=== PATIENT | female | born 1950 | race Caucasian/White ===

== ENCOUNTER → 2017-05-29 | Outpatient (CLI) | payer OTHER ==
[~2017-05-29] MED LIST: ACET-1311 PO; ASPI81TA25 PO; DIPH-437 PO; SIMV20TA2 PO
[2017-05-29 12:24] LABS: BASO % 0.5 %; BASO ABS # 0.03 K/uL (0-0.2); EOS % 6.4 %; EOS ABS # 0.39 K/uL (0-0.5); HEMATOCRIT 40.8 % (37-47); HEMOGLOBIN 13.7 g/dL (12.0-16.0); IG# 0.01 K/uL (0.00-0.02); LYMPH % 22.8 %; LYMPH ABS # 1.38 K/uL (1.2-3.4); MEAN CELL VOLUME 89.9 fL (80-100); MEAN CORPUSCULAR HEMOGLOBIN 30.2 pg (25-34); MEAN CORPUSCULAR HGB CONC 33.6 g/dl (32-36); MONO % 6.3 %; MONO ABS # 0.38 K/uL (0.11-0.59); NEUT % 63.8 %; NEUT ABS # 3.87 K/uL (1.4-6.5); PLATELET COUNT 263 K/uL (130-400); RED CELL DISTRIBUTION WIDTH CV 13.2 % (11.5-14.5); WHITE BLOOD COUNT 6.06 K/uL (4.8-10.8)
[2017-05-29 12:37] LABS: HEMOGLOBIN A1C 5.2 % (4.5-5.6)
[2017-05-29 12:42] LABS: ALBUMIN 3.7 gm/dl (3.4-5.0); ALT/SGPT 22 U/L (12-78); AST/SGOT 14 U/L (15-37); BLOOD UREA NITROGEN 17 mg/dl (7-18); CARBON DIOXIDE 27 mmol/L (21-32); CHOLESTEROL 244 mg/dl (0-200); GLUCOSE 90 mg/dl (70-99); POTASSIUM 4.3 mmol/L (3.5-5.1); SODIUM 139 mmol/L (136-145)
[2017-05-29 12:52] LABS: ALKALINE PHOSPHATASE 68 U/L (45-117); LDL CHOLESTEROL CALCULATED 164 mg/dl; TOTAL PROTEIN 7.9 gm/dl (6.4-8.2)
== END | disposition home or self-care (01) ==
LOC: C.LABBFT 08:16
PROVIDERS: ATTEND Internal Medicine
DX: Z00.00 Encounter for general adult medical examination without abnormal findings (principal); I63.239 Cerebral infarction due to unspecified occlusion or stenosis of unspecified carotid artery; E78.00 Pure hypercholesterolemia, unspecified; R73.01 Impaired fasting glucose

== ENCOUNTER → 2017-12-14 | Outpatient (CLI) | payer OTHER ==
--- NOTE | 2017-12-14 11:38 | DIAGNOSTIC IMAGING REPORT ---
CT LUNG SCREENING CHEST, LOW DOSE WITH COMPUTER-AIDED DETECTION (CAD) CLINICAL HISTORY: 67 years-old Female presenting with FORMER SMOKER. CT DOSE (mGy.cm): The estimated cumulative dose is 73.66 mGycm. TECHNIQUE: Multidetector CT imaging of the chest was performed without the use of intravenous contrast. IV contrast: None. A dose lowering technique was used consistent with the principles of ALARA (as low as reasonably achievable). Additional postprocessing was performed on a separate [employer] workstation by the radiologist for computer-aided detection and 3-D volumetric segmentation of pulmonary nodules. COMPARISON: None. FINDINGS: Move Coordinator topogram: Unremarkable. On soft tissue windows, normal thoracic inlet. No axillary, supraclavicular, or mediastinal lymphadenopathy. Evaluation of the shyay limited without intravenous contrast. Atherosclerosis of the aorta. Normal heart size. Coronary artery and aortic valve calcification. No pericardial or pleural effusion. Upper abdomen normal. On lung windows, no focal infiltrate or nodule. Airways patent. No pneumothorax. On bone windows, normal osseous structures. CAD FINDINGS: Overall Lung RADS Category: 1 Lung RADS Management Recommendation: Continue annual lung cancer screening. Lung RADS Follow Up Date: 2018-12-14 Lung RADS Nodule ID: IMPRESSION: 1. No pulmonary nodule. Continued interval lung cancer screening. Electronically signed by: Pablo Davis M.D. 12/14/2017 11:37 AM Dictated Date/Time: 12/14/2017 9:47 AM
== END | disposition home or self-care (01) ==
LOC: C.CTS 09:27
PROVIDERS: ATTEND Internal Medicine
DX: Z87.891 Personal history of nicotine dependence (principal)

== ENCOUNTER 2020-07-23 05:09 | Observation (INO) ==
--- NOTE | 2020-07-07 15:45 | PAT Medication Instructions ---
Medication Instructions Date of Service July 07, 2020 Home Medications Medication Instructions Recorded Ray Fagan #1 ea 06/29/20 turmeric 400 mg capsule 400 mg PO QAM Dotterra Vitamin 2 cap PO QAM Triease 1 cap PO QAM STOP taking 2 weeks before surgery turmeric 400 mg capsule 400 mg PO QAM Dotterra Vitamin 2 cap PO QAM Triease 1 cap PO QAM OTHERWISE NOTHING TO EAT OR DRINK AFTER MIDNIGHT: Other Notes If you have any questions please call us at [phone] or [phone] or [phone] or [phone]
--- NOTE | 2020-07-09 10:37 | Anesthesiology Consultation ---
Date of Service July 09, 2020 Assessment & Plan (1) Encounter for pre-operative examination: Chart Review Chart Review: Acceptable Risk for Surgery (pending preop Covid testing ) and Patient seen in Pre Admission Testing Per PAT appt on 07/09/20, patient denies any recent travel. No known Covid infection in the past 90 days. No known Covid positive contacts or Covid related symptoms. Preop Covid testing scheduled 07/17/20= will await results. Educated on importance of self quarantining, social distancing and wearing mask in public both for the patient and household contacts. Has had both Covid vaccines Seen by PCP 05/19/20= seen for Medicare annual wellness exam. Also referred to Dr. Jordan (ortho) for ongoing chronic knee pain. Seen by cardiology 02/17/2020 = pt seen re: abnormal ECHO. Aware of moderate to severe coronary artery calcifications on CT scan. ECHO done 12/2019 that showed severe asymmetric septal hypertrophy. Carotid u/s shows left carotid occlusion. "The patient is stable from cardiovascular standpoint. The patient was reassured that her asymmetric septal hypertrophy does not represent hypertrophic cardiomyopathy and is of no clinical concern. We will reassess her left ventricle hypertrophy in approximately 1 year." Continue current meds. Plan for repeat ECHO and carotid u/s in one year. F/u in one year. Teaching & Discussion Pre-Anesthesia Teaching/Discussion Notes: Instructed NPO after midnight before surgery,except medications with 15 cc of water. Medication instructions provided according to the PAT guidelines. History Surgery Operation Date: 07/23/20 11:10 Proposed Procedures p Left Total Knee Arthroplasty - Delon Jordan MD Height/Weight Height: 5 ft 4 in Weight: 102 kg Allergies Allergy/AdvReac Type Severity Reaction Status Date / Time shrimp Allergy Severe LIPS Verified 07/02/20 12:34 TINGLING nickel Allergy Intermediate Blister Verified 07/02/20 12:33 Nmiopxo-Xtp-Wko Reductase Allergy Intermediate SEVERE Verified 07/02/20 12:34 Inhibitor MUSCLE PAIN/COULD NOT WALK Medications Home Medications Medication Instructions Recorded Confirmed Last Taken turmeric 400 mg capsule 400 mg PO QAM cap 05/15/19 07/02/20 01/20/20 Wheeled Walker #1 ea 06/29/20 06/29/20 Unknown Dotterra Vitamin 2 cap PO QAM 07/02/20 07/02/20 Unknown Triease 1 cap PO QAM 07/02/20 07/02/20 Unknown Bone Nutrient See Rx Instructions .ROUTE .COMPLEX 07/09/20 07/09/20 Unknown Copaiba See Rx Instructions .ROUTE .COMPLEX 07/09/20 07/09/20 Unknown Deep Blue Supplement See Rx Instructions .ROUTE .COMPLEX 07/09/20 07/09/20 Unknown Past Medical History Medical History (Updated 07/09/20 @ 12:34 by Peace Hagen PA-C) Asymmetric septal hypertrophy Follows with cardiology - no signs of HCM History of hypothyroidism Pt has never been on thyroid medications in the past States essential oils have helped regulate thyroid TSH WNL 05/2020 History of restless legs syndrome No current issues Hyperlipidemia Patient not agreeable to statin therapy Diet controlled Occlusion and stenosis of carotid artery with cerebral infarction (2012) LEFT SIDE "100% BLOCKED" SINCE AT LEAST 2012 No longer follows with vascular- follows with Dr. Crouch and PCP Seasonal allergies Seborrheic keratosis Stroke 2012 (MILD RESIDUAL WEAKNESS ON RT SIDE) Exercise / Class Metabolic Activity II 4-5 Yardwork/Stairs/Walk up hill (one flight of stairs - no chest pain or SOB ) Past Family History Family History Father Colon cancer Lung cancer Colorectal cancer Mother CHF (congestive heart failure) Lung cancer Sister Alcohol abuse Bladder cancer Lymphoma Hypertension Grandfather (Paternal) Myocardial infarction Grandmother (Maternal) Uterine cancer Other No family history of adverse response to anesthesia Denies family history of Ovarian cancer Prostate cancer Breast cancer Past Surgical History Surgical History History of ankle surgery LEFT (HARDWARE INTACT) History of colonoscopy History of tonsillectomy and adenoidectomy History of tooth extraction History of tubal ligation [place] teeth removed Past Anesthesia History No Hx of Anesthesia Complications and No Family Hx of Anesthesia Complications History of PONV No Hx of Motion Sickness and History of PONV (one episode with wisdom teeth extraction ) Social History Smoking Status: Former smoker Smoking cigarettes per day: 20 Smoking End Date: 9 YEARS AGO Hx Alcohol Use: Yes Alcohol type: wine alcohol intake frequency: holidays/special occasions only Hx Substance Use: No substance use type: does not use Review of Systems Chronic cough- mild- secondary to allergies - stable Very occ reflux- relieved with OTC meds Patient denies chest pain, shortness of breath, dyspnea on exertion, wheezing, palpitations. No hx of seizures, AR, apnea/snoring. No hx of blood clots or blood transfusions Physical Exam Vital Signs VITALS BP 161/87 P 76 TEMP 98.0 SP02 95% RESP 16 Constitutional no acute distress ENMT Mouth: no TMJ clicking Thyromental Distance: < 3.5 Finger Breadths (3.0) Mallampati Class: I Full upper dentures Partial lower denture Neck + thick neck; neck extension not limited Respiratory normal respiratory effort; no respiratory distress Auscultation: lungs clear to auscultation bilaterally; no wheezes Cardiovascular Rate/Rhythm: regular rate and regular rhythm Heart Sounds: no murmur Vessels: no carotid bruit Musculoskeletal Spine: no pain with cervical ROM Extremities: extremities normal to inspection Psychiatric Orientation: alert Testing Laboratory Results 07/09/20 11:05 07/09/20 11:05 PT 9.6 Seconds (9.0-12.0) 07/09/20 11:05 INR 0.9 (0.9-1.1) 07/09/20 11:05 APTT 24.5 Seconds (21.0-31.0) 07/09/20 11:05 Blood Type B Positive 07/09/20 11:05 Antibody Screen NEGATIVE 07/09/20 11:05 05/13/20= TSH: 3.680 Electrocardiogram Date: 07/09/20 SR with 1st degree AVB at 67bpm. Otherwise normal EKG. Chest X-Ray Date: 07/09/20 Findings: + NAD Echocardiogram Date: 01/09/20 EF: 6065% LV Function: normal RWMA: + none Other Findings: + LVH (Moderate/concentric), + diastolic dysfunction (Grade 1) and + pertinent finding (Asymmetric severe hypertrophy of basal anterior septum) Valvular Disease: + no significant valvular disease Other Testing Lung CT scan 12/31/2019 = no acute intrathoracic abnormality. No suspicious pulmonary nodules. Moderate to extensive coronary calcifications. Hepatic st eatosis. . 9 mm peripherally calcified splenic artery aneurysm Carotid duplex 01/24/2019 = <50% stenosis in the right internal carotid artery. Occluded left internal carotid artery. Antegrade flow in both vertebral arteries.
[2020-07-09 11:27] LABS: Basophils # (auto) 0.02 K/uL (0-0.2); Basophils % (auto) 0.4 %; Eosinophils # (auto) 0.15 K/uL (0-0.5); Hematocrit (blood only) 38.9 % (37-47); Hemoglobin 13.2 g/dL (12.0-16.0); Immature Granulocytes # (auto) 0.02 K/uL (0.00-0.02); Immature Granulocytes % (auto) 0.4 %; Lymphocytes # (auto) 1.27 K/uL (1.2-3.4); Lymphocytes % (auto) 25.7 %; Mean Corpuscular Hemoglobin 31.1 pg (25-34); Mean Corpuscular Hgb Conc 33.9 g/dL (32-36); Mean Corpuscular Volume 91.7 fL (80-100); Mean Platelet Volume 8.3 fL (7.4-10.4); Monocytes % (auto) 6.1 %; Neutrophils # (auto) 3.18 K/uL (1.4-6.5); Neutrophils % (auto) 64.4 %; Platelet Count 235 K/uL (130-400); RDW Standard Deviation 43.2 fL (36.4-46.3); Red Blood Count 4.24 M/uL (4.2-5.4); White Blood Count 4.94 K/uL (4.8-10.8)
--- NOTE | 2020-07-09 11:36 | XRay Report ---
XR chest Pre-admission PA/Lat CLINICAL HISTORY: Preoperative chest COMPARISON STUDY: 12/22/2012 FINDINGS: The cardiac and mediastinal contours are normal. There is no evidence of focal pulmonary co nsolidation. There is no evidence of failure. No pleural effusions are visualized.[ IMPRESSION: No active disease in the chest. ACT 112: Negative or not required by law. Electronically signed by: Breezy Chiang M.D. 07/09/2020 11:34 AM
[2020-07-09 12:00] LABS: INR 0.9 (0.9-1.1); Partial Thromboplastin Ratio 0.9; Partial Thromboplastin Time 24.5 Seconds (21.0-31.0); Prothrombin Time 9.6 Seconds (9.0-12.0)
[2020-07-09 13:07] LABS: BUN Creatinine Ratio 17.2 (10-20); Creatinine Clr Calc Pharmacy 78.1 ml/min; Est GFR (African American) 88.5; Est GFR (Non-African American) 76.4; Potassium 4.3 mmol/L (3.5-5.1)
--- NOTE | 2020-07-09 16:51 | Electrocardiogram Report ---
Test Reason : Blood Pressure : / mmHG Vent. Rate : 067 BPM Atrial Rate : 067 BPM P-R Int : 218 ms QRS Dur : 080 ms QT Int : 390 ms P-R-T Axes : 058 047 057 degrees QTc Int : 412 ms Sinus rhythm with 1st degree A-V block Otherwise normal ECG When compared with ECG of 22-DEC-2012 08:46, Questionable change in QRS axis Confirmed by Krishna Carlson ([id number]) on 07/09/2020 4:51:14 PM Referred By: Delon Jordan Confirmed By:Krishna Carlson
--- NOTE | 2020-07-18 18:54 | History and Physical Report ---
DATE OF ADMISSION: 07/23/2020 CHIEF COMPLAINT: Bilateral knee pain and discomfort. HISTORY OF PRESENT ILLNESS: The patient is a 69-year-old female from [place], who presents basically for surgical treatment of her knees. She has about a 10-year history of bilateral knee pain and discomfort. It tends to wax and wane which one is more painful. It has gotten significantly worse over the past year to the point where she does not want to do things. She has been through extensive conservative treatment in the past. She does have a history of a stroke with some right-sided weakness about 8 years ago, but has been stable from this. She has pain and discomfort in both knees. She feels a little bit more instability in the right knee than the left. She now would like to consider surgery. PAST MEDICAL HISTORY: Significant for: 1. Cerebrovascular disease, status post stroke 8 years ago, some right-sided weakness. 2. Hypertension. 3. Hypothyroidism. 4. Elevated cholesterol. 5. Low back pain/sciatica. 6. Obesity. PAST SURGICAL HISTORY: Includes: 1. Tubal ligation. 2. Left ankle ORIF. 3. Tonsillectomy. ALLERGIES: STATIN DRUGS. CURRENT MEDICATIONS: Include: 1. Vitamins. 2. Turmeric. 3. Unspecified supplements. SOCIAL HISTORY: Significant for a 69-year-old female. Lives in [place]. She is . Rare alcohol intake. One child. FAMILY HISTORY: Significant for heart disease, lung cancer, or bladder cancer. REVIEW OF SYSTEMS: Significant for this stroke with some right-sided weakness. She does not take any medicine for it. No history of DVT or PE. No known bleeding problems. No history of chest pain or shortness of breath. PHYSICAL EXAMINATION: GENERAL: Shows a pleasant, middle-aged male, looks to be in reasonably good health. HEENT: Benign. NECK: Supple, no lymphadenopathy. LUNGS: Clear to auscultation. HEART: Has a regular rate and rhythm. ABDOMEN: Soft, nontender, nondistended. EXTREMITIES: Grossly neurovascularly intact except as follows: Examination of both knees reveals the patient ambulates independently. She has got valgus alignment to both knees, which is increased with weightbearing. Range of motion is symmetric with about 5 degrees short of full extension, 120 degrees of flexion. There is no instability. He does have some patellofemoral crepitance on both sides. X-RAYS: X-rays of both knees were reviewed. It shows advanced bilateral knee DJD. She has complete loss of lateral joint space on the 40-degree flexion films on both sides. She has got osteophytes mostly in the lateral compartment. ASSESSMENT: A 69-year-old female with advanced bilateral knee degenerative joint disease, gradually gotten worse over the past 10 years and more significantly over the past year. She has got multiple other medical comorbidities including history of stroke with some right-sided weakness, hypertension, hypothyroidism, elevated cholesterol, sciatica, and obesity with a body mass index of 40. She would like to proceed with surgery. PLAN: We initially looked down into her left knee, but she decided to switch to the right knee. Both knees are pretty equal except the right one has been a bit more unstable. We will proceed with right knee replacement. The risks and benefits of this procedure were explained to the patient including but not limited to DVT, PE, , infection, neurological injury, vascular injury, bleeding problem, pain, limited range of motion, stiffness, failure to relieve her symptoms, incomplete relief of symptoms, need for further surgery in the future, fracture, leg length inequality, nerve palsy, persistent pain, need for blood transfusion, etc. The patient understands and desires to proceed. Informed consent was obtained. SHE APPARENTLY DOES HAVE A BARNEY ALLERGY. We will use a Cruz and Nephew Zirconium Journey II knee arthroplasty. She is planning to be discharged to home with some home health. We will use aspirin for DVT prophylaxis.
[2020-07-23] MEDS ORDERED: LR 60ML/HR IV SCH (06:00)
[2020-07-23] MEDS ORDERED: FAMOTIDINE 20 MG TAB PO SCH (06:00)
[2020-07-23] MEDS ORDERED: TRANEXAMIC ACID 1,000 MG **IV Intra-op IV SCH (06:00)
[2020-07-23] MEDS ORDERED: Scopolamine 1 MG TDSY TD SCH (06:00)
[2020-07-23] MEDS ORDERED: ACETAMINOPHEN 500 MG TAB PO SCH (06:00)
[2020-07-23] MEDS ORDERED: ceFAZolin 2000MG 2,000 MG/15 ML SYR IV SCH (06:00)
[2020-07-23] MEDS ORDERED: LR 500ML BOLUS, THEN 15ML/HR IV SCH (06:00)
[2020-07-23] MEDS ORDERED: GABAPENTIN 300 MG CAP PO SCH (06:00)
[2020-07-23] MEDS ORDERED: BUPIVACAINE LIPOSOME/PF 266 MG, BUPIVACAINE/EPINEPHRINE 50 ML, SODIUM CHLORIDE 0.9% 30 ... INFIL SCH (06:00)
[2020-07-23] MEDS ORDERED: BUPIVACAINE 0.5 % 5 MG/1 ML PF 10ML VIAL ONE (06:28)
[2020-07-23] MEDS ORDERED: ROPIVACAINE 0.5% 5 MG/ML 30 ML VIAL ONE (06:29)
[2020-07-23] MEDS ORDERED: MIDAZOLAM HCL 1 MG/ML 2ML VIAL ONE (06:37)
[2020-07-23] MEDS ORDERED: KETAMINE 50 MG/5 ML SYRINGE ONE (06:37)
[2020-07-23] MEDS ORDERED: HYDROmorphone INJ 1 MG/ML SYRINGE IV PRN (06:39)
[2020-07-23] MEDS ORDERED: ATROPINE SULFATE 0.1 MG/ML 10ML SYR IV PRN (06:39)
[2020-07-23] MEDS ORDERED: ONDANSETRON INJ 2 MG/ML 2 ML VIAL IV PRN ×2 (06:39→10:16)
[2020-07-23] MEDS ORDERED: KETOROLAC 30 MG/ML VIAL IV PRN (06:39)
[2020-07-23] MEDS ORDERED: ePHEDrine sulfate 50 MG/ML AMP IV PRN (06:39)
[2020-07-23] MEDS ORDERED: LIDOCAINE HCL 2% 2 ML VIAL/AMP(20MG/ML) INFIL ONE (06:41)
[2020-07-23] MEDS ORDERED: ONDANSETRON INJ 2 MG/ML 2 ML VIAL ONE (06:41)
[2020-07-23] MEDS ORDERED: PROPOFOL IV EMULSION 10 MG/ML 20 ML VIAL IV ONE ×2 (06:41→08:43)
[2020-07-23] MEDS ORDERED: GLYCOPYRROLATE 0.2 MG/ML VIAL ONE (06:41)
--- NOTE | 2020-07-23 07:01 | History & Physical Bridge Note ---
Date of Service July 23, 2020 History & Physical Bridge Note I have examined the patient, reviewed the History & Physical and in the interval since the performance of the History & Physical I have noted the following changes of clinical significance: Patient with bilateral knee DJD. Wants left knee injection under anesthesia. Injection explained and added to informed consent.
[2020-07-23] MEDS ORDERED: SODIUM CHLORIDE 0.9% PF 50 ML VIAL ONE (07:03)
[2020-07-23] MEDS ORDERED: BUPIVACAINE LIPOSOME 1.3% 266 MG/20 ML VIAL ONE (07:03)
[2020-07-23] MEDS ORDERED: BACITRACIN INJ 50,000 UNIT VIAL ONE (07:03)
[2020-07-23] MEDS ORDERED: methylPREDNISolone acetate 80 MG/ML VIAL ONE (07:04)
[2020-07-23] MEDS ORDERED: BUPIVACAINE 0.25% 30 ML VIAL ONE (07:04)
[2020-07-23] MEDS ORDERED: EPINEPHrine INJ 1 MG/ML AMP ONE (07:04)
[2020-07-23] MEDS ORDERED: BUPIVACAINE 0.5 % 5 MG/1 ML MPF 30ML VIAL ONE (07:06)
[2020-07-23] MEDS ORDERED: BETAMETH SOD PHOS/ACETATE IA 6 MG/ML IA STA (07:09)
[2020-07-23] MEDS ORDERED: BUPIVACAINE 0.5 % 5 MG/1 ML MPF 30ML VIAL INFIL ONE (07:10)
[2020-07-23] MEDS ORDERED: PHENYLEPHRINE 100MCG/ML 5ML SYR ONE (07:43)
--- NOTE | 2020-07-23 09:30 | Operative Report ---
Post Operative Report Pre & Post Diagnosis Operation Date: 07/23/20 07:15 Pre-Op Diagnosis: Bilateral knee osteoarthritis Post-Op Diagnosis: Bilateral knee osteoarthritis I identified the patient and participated in the time-out.: Yes Procedure Operation Date: 07/23/20 07:15 Actual Procedures p Right Total Knee Arthroplasty, Left Knee Injection(Right) - Delon Jordan MD Surgeon Delon Jordan MD Dural Mechanic ARISTEO Shaffer Estimated Blood Loss 50 Findings Consistent with Post-Op Diagnosis Operative findings revealed advanced right knee DJD. She had extensive grade 4 [id number] disease the lateral and patellofemoral compartments. The medial compartment showed some mild to moderate degenerative changes. She had a valgus deformity to her knee. Osteophytes primarily laterally. Moderate-sized joint effusion. Fluids 1500 cc. Specimens Right knee sent for pathology. Drains None. Anesthesia Type Spinal MAC Complications none Disposition Accompanied Patient To Recovery: No Disposition: Recovery Room Indications Patient is a 69-year-old female is had a fairly long history of bilateral knee pain discomfort describes gotten worse over time. Both knees hurt pretty equally and vacillate from one knee to the other. The right knee is bothering more recently and also has more of a sense of instability. She does have a history of a stroke with some right-sided weakness. She failed all conservative measures and elected proceed with right total knee arthroplasty. She went to have her left knee injected under anesthesia. The patient has an apparent nickel allergy and therefore we used the Cruz & Nephew journey 2 zirconium total knee arthroplasty. Description of Procedure Operative implants consist of: 1. Cruz & Nephew journey 2 size 4 right posterior stabilized femoral component. 2. Cruz & Nephew journey 2 size 3 tibial tray. 3. 11 mm posterior stabilized polyethylene insert. 4. 29 x 9 all polypatella. Patient was taken to the operating room, identified, placed in the operating table supine position but all contact areas were properly padded. IV antibiotics tried by anesthesia team. A spinal anesthetic and abductor canal block had provided holding area. Alaniz catheter was placed in sterile fashion. Right thigh turn was then placed. Attention then drawn to the left knee. The stocking was taken down to her calf area and left knee was then prepped with alcohol. Injected left knee with 2 cc of Celestone and 8 cc of Marcaine. A 4 x 4 gauze was placed over this followed by a Bossman stocking and SCD device. The right leg was then prepped and draped in the usual sterile fashion. The [facility] leg was elevated exsanguinated with use of an Esmarch and turns placed at 3 mmHg. An anterior approach to the right knee was then performed to longitudinal incision centered over the patella. Sharp dissection was got through subcutaneous this down the extensor mechanism. Medial parapatellar arthrotomy incision was made. Some subperiosteal dissection was carried out medially. The fat pad was resected from each patella tendon. The lateral patellofemoral ligament was released. Patella was subluxated laterally knee was flexed. The osteophytes were taken off distal femur. The ACL and PCL were then released from distal femur and the tibia subluxated anteriorly. The external tibial alignment jig was one placed in the interface the tibia just 8 mm medially. Proximal tibial cut was made with about 3 to 4 mm removed from the medial side. The tibia was then sized to a size 3. Attention drawn the femur. The distal femur exam with a sharp drop with intramedullary canal was suction. A right 5 degree valgus cutting guide was placed. The distal femoral cutting block was pinned in place. Distal femoral cut was made to take an additional 4 mm bone off distal femur as the +2 cut related and cut to the base of the notch area. The knee was then brought out into full extension. I then released the IT band and some the posterior lateral capsule in order to equalize the extensio n gap. Great care was taken to protect Peroneal nerve at all times. The knee was then flexed. I then sized the femur to a size 4. The AP cutting block was pinned parallel to the epicondylar axis which was 6 degrees of external rotation. The anterior cord, anterior chamfer, posterior cut, posterior chamfer, anterior chamfer cuts were then made. The knee was flexed. The remnants of the medial lateral menisci were excised. The osteophytes were taken off the posterior aspect of the femur. The femoral component was then placed. The milling device for the trochlea was then placed in the trochlea was created with the milling device. I then placed the trochlear trial. We then we then placed the tibial tray in maximum external rotation. The drill and stem punch used to create defect in proximal to for the tibial tray. I then trialed the knee in 11 mm insert fit most appropriately. Attention drawn to the patella. Patella was cleaned of all soft tissues. Patella thickness measured 20 mm in thickness and cut down to 14. Was sized to a size 29 patella. Locals were drilled for the 29 patella. The lateral osteophyte was removed. Patella button was placed. Knee was taken through range of motion patella tracked nicely with no thumbs test. Attention drawn to placing permanent components. All trial components were removed. Bone plug was placed in the distal femur limit blood loss. A double batch [place]os G cement was mixed. A Cruz & Nephew journey 2 size 4 right posterior stabilized femoral component was then placed followed by a size 3 tibial tray, 1 mm posterior stabilized polyethylene insert, and a 29 x 9 all polypatella. All extraneous cement was removed. The knee was brought out into full extension total cement hardened. Final cement check was then performed. Pericapsular tissues were injected with a total of 100 cc of combination of 20 cc of Exparel, 30 cc normal saline, 50 cc of quarter percent Marcaine with epinephrine. Patient did receive 1 g tranexamic acid per the tourniquet was then let down for tourniquet time 71 minutes. Hemostasis assured use electrocautery. The extensor mechanism closed with combination 1 PDS suture #1 Vicryl suture in [id number] fashion. Extensor mechanism checked found to be intact. The subcutaneous tissue then closed with 2 Dexon suture in a buried interrupted fashion skin was closed skin edil. Leg was then cleaned dried a sterile dressing composed Xeroform, 4 x 4's, sterile cast padding, Dc bandage were applied. Patient transferred to the recovery room in stable condition. Patient tolerated procedure well and there were no complications. Vicente Shaffer, my physician reference library assistant, was present for the entire procedure. His assistance was essential and required for appropriate patient positioning, prepping and draping, surgical exposure, performing the technical details of the operation, placement the implants, closure of the wound, and placement of the sterile bandage. I attest to the content of the Intraoperative Record and any orders documented therein. Any exceptions are noted below.
--- NOTE | 2020-07-23 09:54 | XRay Report ---
RIGHT KNEE 2 VIEWS History: Right total knee arthroplasty. Degenerative arthritis. Postop. FINDINGS: The patient is status post a right total knee arthroplasty. The hardware is intact. No frac ture or dislocation. Skin edil are in place. IMPRESSION: Right total knee arthroplasty. No evidence for hardware complication. ACT 112: Negative or not required by law. Electronically signed by: Sebas Cr M.D. 07/23/2020 9:53 AM
--- NOTE | 2020-07-23 09:59 | Anesthesiology Progress Note ---
Date of Service July 23, 2020 Anesthesia Post Procedure Vital Signs Vital Signs: Temp Pulse Pulse Resp BP BP Pulse Ox 07/23/20 09:50 36.3 C L 64 16 143/70 H 95 07/23/20 09:40 67 10 L 148/88 H 97 07/23/20 09:30 73 17 114/87 99 07/23/20 09:22 36.7 C 76 20 115/68 97 07/23/20 05:54 36.7 C 92 H 18 160/85 H 97 Transfer of Care Handoff Completed per policy Notes Mental Status: alert / awake / arousable Patient Amnestic to Procedure: Yes Nausea / Vomiting: adequately controlled Pain: adequately controlled Airway Patency, RR, SpO2: stable & adequate BP & HR: stable & adequate Hydration State: stable & adequate Anesthetic Complications: no major complications apparent
[2020-07-23] MEDS ORDERED: HYDROmorphone INJ 0.5 MG/0.5 ML SYR IV PRN (10:16)
[2020-07-23] MEDS ORDERED: NALOXONE HCL 0.4 MG/1 ML VIAL/CARP IV PRN (10:16)
[2020-07-23] MEDS ORDERED: [UNRECOGNIZED DRUG - OTHER] SCH (10:16)
[2020-07-23] MEDS ORDERED: bisacodyL 10 MG SUPP PR PRN (10:16)
[2020-07-23] MEDS ORDERED: METOCLOPRAMIDE HCL INJ 5 MG/ML 2 ML VIAL IV PRN (10:16)
[2020-07-23] MEDS ORDERED: MAGNESIUM HYDROXIDE SUSP 30 ML UDC PO PRN (10:16)
[2020-07-23] MEDS ORDERED: [UNRECOGNIZED DRUG - OTHER] SCH (10:16)
[2020-07-23] MEDS ORDERED: ALUMINUM/MAGNESIUM SUSP 30 ML UDC PO PRN (10:16)
[2020-07-23] MEDS ORDERED: oxyCODONE HCL IR 5 MG TAB (IMMEDIATE RELEASE) PO PRN (10:16)
[2020-07-23] MEDS: SODIUM CHLORIDE 0.9% 1000ML 1,000 ML IV SCH ×2 (11:49→21:17)
[2020-07-23] MEDS: KETOROLAC TROMETHAMINE 15 MG/ML VIAL IV SCH ×3 (11:49→23:26)
[2020-07-23] MEDS: ACETAMINOPHEN 500 MG TAB PO SCH ×2 (13:29→21:25)
[2020-07-23] MEDS: ceFAZolin 2000MG 2,000 MG/15 ML SYR IV SCH ×2 (15:31→23:25)
[2020-07-23] MEDS: Scopolamine CHECK PATCH PLACEMENT SCH ×2 (15:32→23:26)
[2020-07-23] MEDS ORDERED: TRANEXAMIC ACID / 0.7% NACL 1,000 MG/100 ML BAG IV SCH (16:00)
[2020-07-23] MEDS: FERROUS GLUCONATE 324 MG TAB PO SCH (17:13)
[2020-07-23] MEDS: ASCORBIC ACID 500 MG TAB PO SCH (17:13)
--- NOTE | 2020-07-23 17:20 | Progress Notes ---
DATE: 07/23/2020 SUBJECTIVE: A 69-year-old white female postop from a right knee replacement and left knee injection. She is doing well. Not really having any pain yet. No chest pain or shortness of breath. Not feeling dizzy or lightheaded. OBJECTIVE: VITAL SIGNS: Temperature 36.8. Vital signs are stable. GENERAL: Shows a pleasant, middle-aged female. She is lying in bed and I had to wake her this afternoon. LUNGS: Clear to auscultation. HEART: Has a regular rate and rhythm. ABDOMEN: Soft, nontender, nondistended. EXTREMITIES: Grossly neurovascularly intact except as follows: Examination of the right leg reveals the leg to be well aligned. Dressing is clean, dry and intact. She can dorsiflex and plantarflex her foot appropriately. She is neurologically intact. X-RAYS: X-rays of the right knee from recovery room are reviewed. It shows a right cemented posterior stabilized total knee arthroplasty. Components looked to be in good position. No signs of problems. ASSESSMENT: A 69-year-old white female postoperative from a right knee replacement, doing well. She does have a history of strokes 7 years ago with some right-sided weakness. Her pain is controlled. She is neurologically intact. PLAN: 1. DVT prophylaxis including thigh-high TEDs, SCDs, and aspirin twice a day. 2. PT/OT. Weightbear as tolerated. Right total knee protocol. 3. Pain control, doing well with current pain regimen. 4. IV antibiotics x24 hours. 5. Disposition: Plan to discharge to home with some home health once adequately recovered and medically stable.
[2020-07-23] MEDS ORDERED: SENNA 8.6 MG TAB PO SCH (21:00)
[2020-07-23] MEDS: ASPIRIN 81 MG ECTAB PO SCH (21:24)
[2020-07-23] MEDS: TAPENTADOL HCL ER 50 MG TABCR PO SCH (21:24)
[2020-07-23] MEDS: DOCUSATE SODIUM 100 MG CAP PO SCH (21:25)
[2020-07-24] MEDS: ACETAMINOPHEN 500 MG TAB PO SCH (05:56)
[2020-07-24] MEDS: KETOROLAC TROMETHAMINE 15 MG/ML VIAL IV SCH ×2 (05:56→12:44)
[2020-07-24 06:19] LABS: Hematocrit (blood only) 30.7 % (37-47); Hemoglobin 10.3 g/dL (12.0-16.0); Mean Corpuscular Hemoglobin 30.3 pg (25-34); Mean Corpuscular Hgb Conc 33.6 g/dL (32-36); Mean Corpuscular Volume 90.3 fL (80-100); Mean Platelet Volume 8.5 fL (7.4-10.4); Platelet Count 203 K/uL (130-400); RDW Coefficient of Variation 13.2 % (11.5-14.5); RDW Standard Deviation 43.5 fL (36.4-46.3); White Blood Count 10.46 K/uL (4.8-10.8)
[2020-07-24 06:47] LABS: Calcium 8.2 mg/dl (8.5-10.1); Est GFR (African American) 78.8; Potassium 4.1 mmol/L (3.5-5.1)
[2020-07-24] MEDS ORDERED: dexAMETHasone 4 MG TAB PO SCH (08:00)
[2020-07-24] MEDS: Scopolamine CHECK PATCH PLACEMENT SCH (08:33)
[2020-07-24] MEDS: ASPIRIN 81 MG ECTAB PO SCH (08:34)
[2020-07-24] MEDS: ASCORBIC ACID 500 MG TAB PO SCH (08:34)
[2020-07-24] MEDS: FERROUS GLUCONATE 324 MG TAB PO SCH (08:34)
[2020-07-24] MEDS: DOCUSATE SODIUM 100 MG CAP PO SCH (08:34)
[2020-07-24] MEDS: TAPENTADOL HCL ER 50 MG TABCR PO SCH (08:43)
[2020-07-24] MEDS ORDERED: MULTIVITAMIN TAB PO SCH (09:00)
[2020-07-24] MEDS ORDERED: NON-FORMULARY MEDICATION (Turmeric 400 mg capsule) PO SCH (09:00)
[2020-07-24] MEDS ORDERED: [UNRECOGNIZED DRUG - OTHER] PO SCH (09:00)
[2020-07-24] MEDS ORDERED: [UNRECOGNIZED DRUG - OTHER] PO SCH (09:00)
--- NOTE | 2020-07-24 09:02 | Progress Notes ---
DATE: 07/24/2020 SUBJECTIVE: A 69-year-old white female postop day 1 from right knee replacement and left knee injection. She is doing quite well. Had good night. Pain is controlled. No chest pain or shortness of breath. Not feeling dizzy or lightheaded. She is looking forward to try and get home today. PHYSICAL EXAMINATION: GENERAL: Shows a pleasant, middle-aged female. She is sitting up in her bedside chair, looks comfortable. EXTREMITIES: Examination of the right leg reveals the leg to be well aligned. Dressing is clean, dry and intact. She can dorsiflex and plantarflex her foot appropriately. She can do a good straight leg raise. LABORATORY DATA: Hemoglobin 10.3. Hematocrit 30.7. Electrolytes are stable. ASSESSMENT: A 69-year-old white female postop day 1 from right knee replacement and left knee injection, doing well. Knee is working pretty well. Pain is controlled. She is neurologically intact. PLAN: 1. DVT prophylaxis including thigh-high TEDs, SCDs, and aspirin twice a day. 2. PT/OT. Weight bear as tolerated. Right total knee protocol. 3. Pain control, doing well with current pain regimen. 4. Disposition: We will likely discharge to home with some home health later today if she does okay in therapy.
--- NOTE | 2020-07-27 09:02 | Discharge Summary ---
Date of Service July 27, 2020 Discharge Data Procedures Performed Operation Date: 07/23/20 07:15 Actual Procedures p Right Total Knee Arthroplasty,(Right) - Delon Jordan MD s Left Knee Injection(Left) - Delon Jordan MD Hospital Course (1) Status post total right knee replacement: This patient is a 69 year old female admitted on 07/23/20 and underwent right total knee arthroplasty and an injection for the left knee.. She tolerated the procedure well and there were no complications. Transferred to the PACU post op and later to the orthopedic floor for further care. She was given ancef for antibiotic prophylaxis. She was also given SHANNAN stockings, SCDs, and aspirin for DVT prophylaxis. Hemoglobin, hematocrit, and vital signs were monitored during her hospital stay and remained stable. Did not require any blood transfusions. There were no complications during her hospital stay. By post op day #1 the patient was tolerating a regular diet, pain was reasonably controlled with oral pain medicine, and she was participating in physical therapy. On post op day #1 the patient was discharged home and set up with home health care. She was given printed discharge instructions including prescriptions for extra strength tylenol, aspirin, and oxycodone. Continue physical therapy, weight bearing as tolerated. Continue SHANNAN stockings. Follow up approximately 2 weeks post op or sooner if there are problems or concerns. Coding Level of Care Code None Diagnoses Status post total right knee replacement Z96.651
== END 2020-07-24 15:12 | disposition home health service (06) ==
LOC: ASU 05:09 → 3E 05:09

== ENCOUNTER 2020-10-22 10:14 | Observation (INO) ==
--- NOTE | 2020-10-15 11:11 | History and Physical Report ---
DATE OF ADMISSION: 10/22/2020 CHIEF COMPLAINT: Persistent left knee pain and discomfort. HISTORY OF PRESENT ILLNESS: A 70-year-old female who now presents for surgical treatment of her left knee. She recently underwent a right knee replacement and recovered from this pretty nicely. She g ot a long history of knee problems. She has been through extensive conservative treatment in the [facility], which has become less successful. Right knee is doing well and she would like to have her left kn ee replaced. Pain is mostly lateral. It increases with weightbearing. She has failed conservative measures including injections and medicines orally. Her walking tolerance is limited by her left kne e. PAST MEDICAL HISTORY: Significant for, 1. Stroke 8 years ago with some right-sided weakness. 2. Hypertension. 3. Hypothyroidism. 4. Elevated cholesterol. 5. Low back pain/sciatica. 6. Obesity, BMI of 38. PAST SURGICAL HISTORY: Includes, 1. Tubal ligation. 2. Left ankle ORIF. 3. Tonsillectomy. 4. Right total knee replacement done on 07/23/2020. ALLERGIES: STATIN DRUGS AND ALSO TO NICKEL. CURRENT MEDICATIONS: Include, 1. Vitamins. 2. Turmeric. 3. Supplements. SOCIAL HISTORY: A 70-year-old female. She lives in [place]. She is . Rare alcohol inta ke. One child. FAMILY HISTORY: Significant for heart disease, lung cancer, bladder cancer. REVIEW OF SYSTEMS: Negative for diabetes, neurologic problems, vascular problems or bleeding disorde rs. She does have this history of a stroke with some right-sided weakness. PHYSICAL EXAMINATION: GENERAL: Shows a pleasant middle-aged female. Looks to be in reasonably good health. HEENT: Benign. NECK: Supple. No lymphadenopathy. LUNGS: Clear to auscultation. HEART: Regular rate and rhythm. ABDOMEN: Soft, nontender, nondistended. EXTREMITIES: Grossly neurovascularly intact except as follows: Examination of the left knee reveals a valgus alignment to the knee. She is tender over the lateral joint line. Small knee effusion. Ra nge of motion is near full extension to 120 degrees of flexion. There is no instability. No pain wi th hip motion. Examination of the right knee reveals a well-healed incision. Mild residual swelling. Range of jaime on is 0 to 120. No instability. X-RAYS: X-rays of the left knee reveal advanced left knee DJD. She has complete loss of lateral sherley nt space on the 40-degree flexion films. Osteophytes laterally. ASSESSMENT: A 70-year-old female with multiple medical comorbidities including history of stroke, hy pertension, hypothyroidism, elevated cholesterol, low back pain/sciatica, obesity, now status post ri ght knee replacement -- doing well, with left knee degenerative joint disease. She has failed conser vative measures and would like to have her left knee replaced. PLAN: We are going to proceed with left knee replacement. The risks and benefits of the procedure w ere explained to the patient including but not limited to DVT, PE, , infection, neurological inj ury, vascular injury, bleeding problem, pain, limited range of motion, stiffness, failure to relieve her symptoms, incomplete relief of symptoms, need for further surgery in the future, fracture, leg le ngth inequality, nerve palsy, etc. The patient understands and desires to proceed. Informed consent was obtained. She does have this apparent metal allergy, so we will use a Cruz and Nephew knee like we did on her other side. She is planning to be discharged to home with some home health similar to last time. Job ID: [id number]
--- NOTE | 2020-10-20 11:40 | Anesthesiology Consultation ---
Date of Service October 20, 2020 Assessment & Plan (1) Encounter for pre-operative examination: Chart Review Chart Review: Acceptable Risk for Surgery (pending preop Covid testing results ) and Patient NOT seen in Pre Admission Testing Per nursing assessment 10/15/2020, patient resides in [facility]. Denies any recent traveluses maskpatient is vaccinated for Covid. No known Covid infection in the past 90 days. No known Covid positive contacts or Covid related symptoms. Preop Covid testing scheduled 10/20/20= results pending Seen in ER on 08/03/20= patient presents with low heart rate in the 40s that has been irregular. Patient denies any symptoms of chest pain, chest tightness, shortness of breath dizziness syncope palpitations or sweats. Cardiac monitoring showed rate of 90 bpm with normal sinus rhythm with frequent PVCs. EKG reviewed at bedside noted normal sinus rhythm with no acute ischemic changes. Did discuss with patent attorney Dr. Rose PVCs could be due to patient's postoperative painshould improve his pain continues to improve. Patient states she has bradycardia in the pastduring colonoscopy in January 2020had a very long pause and given atropinewas asymptomatic at the time. Labs unremarkable. Follow-up with cardiology as outpatient. (Pt's next cardio appt scheduled for Dec 2020) Per cardio [employer] communication note 10/20/20 (re: above ER visit)= "I think that it is okay to proceed with surgery without additional workup." Right TKA 07/23/2020 = done under SAB at L3-4 with 1 attempt. No anesthesia issues noted per anesthesia record. Seen by cardiology 02/17/2020 = pt seen re: abnormal ECHO. Aware of moderate to severe coronary artery calcifications on CT scan. ECHO done 12/2019 that showed severe asymmetric septal hypertrophy. Carotid u/s shows left carotid occlusion. "The patient is stable from cardiovascular standpoint. The patient was reassured that her asymmetric septal hypertrophy does not represent hypertrophic cardiomyopathy and is of no clinical concern. We will reassess her left ventricle hypertrophy in approximately 1 year." Continue current meds. Plan for repeat ECHO and carotid u/s in one year. F/u in one year. History Surgery Operation Date: 10/22/20 08:50 Proposed Procedures p Left Total Knee Arthroplasty - Delon Jordan MD Height/Weight Height: 5 ft 4 in Weight: 99.79 kg Allergies Allergy/AdvReac Type Severity Reaction Status Date / Time shrimp Allergy Severe LIPS Verified 10/15/20 09:51 TINGLING nickel Allergy Intermediate Blister Verified 10/15/20 09:51 Dfwzgdf-Dio-Leb Reductase Allergy Intermediate SEVERE Verified 10/15/20 09:51 Inhibitor MUSCLE PAIN/COULD NOT WALK oxycodone AdvReac Intermediate Nausea / Verified 10/15/20 09:51 Vomiting Medications Home Medications Medication Instructions Recorded Confirmed Last Taken turmeric 400 mg capsule 400 mg PO QAM cap 05/15/19 10/15/20 07/09/20 Dotterra Vitamin 2 cap PO QAM 07/02/20 10/15/20 07/09/20 Triease 1 cap PO QAM 07/02/20 10/15/20 07/09/20 Bone Nutrient 1 tab PO DAILY 07/09/20 10/15/20 07/09/20 Copaiba 1 tab PO BID PRN 07/09/20 10/15/20 07/09/20 Deep Blue Supplement 1 tab PO BID PRN 07/09/20 10/15/20 07/09/20 bisacodyl [Dulcolax (bisacodyl)] 5 mg PO HS PRN 08/03/20 10/15/20 Unknown oxycodone 5 mg PO Q6H PRN 08/03/20 10/15/20 Unknown tramadol 50 mg tablet 50 mg PO Q6 PRN #40 tab 08/06/20 10/15/20 Unknown Past Medical History Medical History (Updated 10/20/20 @ 14:46 by Peace Hagen PA-C) Asymmetric septal hypertrophy Follows with cardiology Dr Crouch - no signs of HCM History of hypothyroidism Pt has never been on thyroid medications in the past States essential oils have helped regulate thyroid TSH WNL 07/2020 History of restless legs syndrome No current issues Hyperlipidemia Patient not agreeable to statin therapy Diet controlled Occlusion and stenosis of carotid artery with cerebral infarction (2012) LEFT SIDE "100% BLOCKED" SINCE AT LEAST 2012 No longer follows with vascular- follows with Dr. Crouch and PCP Seasonal allergies Seborrheic keratosis Stroke 2012 (MILD RESIDUAL WEAKNESS ON RT SIDE) Past Family History Family History Father Colon cancer Lung cancer Colorectal cancer Mother CHF (congestive heart failure) Lung cancer Sister Alcohol abuse Bladder cancer Lymphoma Hypertension Grandfather (Paternal) Myocardial infarction Grandmother (Maternal) Uterine cancer Other No family history of adverse response to anesthesia Denies family history of Ovarian cancer Prostate cancer Breast cancer Past Surgical History Surgical History History of ankle surgery LEFT (HARDWARE INTACT) History of colonoscopy History of tonsillectomy and adenoidectomy History of tooth extraction History of tubal ligation Status post right knee replacement Social History Smoking Status: Former smoker Smoking cigarettes per day: 20 Do You Dip or Chew Tobacco: No Smoking End Date: 9 yrs ago Hx Alcohol Use: Yes Alcohol type: wine alcohol intake frequency: a few times a month Hx Substance Use: No substance use type: does not use Lab Results Anesthesia Preop Results Results Anesthesia Widget: WBC 4.98 K/uL (4.8-10.8) 10/20/20 Hgb 13.9 g/dL (12.0-16.0) 10/20/20 Hct 41.9 % (37-47) 10/20/20 Plt 268 K/uL (130-400) 10/20/20 Na 138 mmol/L (136-145) 10/20/20 K 4.2 mmol/L (3.5-5.1) 10/20/20 Cl 106 mmol/L (98-107) 10/20/20 CO2 30 mmol/L (21-32) 10/20/20 BUN 15 mg/dl (7-18) 10/20/20 Creat 0.68 mg/dl (0.6-1.2) 10/20/20 Glucose Level 77 mg/dl (70-99) 10/20/20 PT 9.4 Seconds (9.0-12.0) 10/20/20 INR 0.9 (0.9-1.1) 10/20/20 Blood Type B Positive 10/20/20 Antibody Screen NEGATIVE 10/20/20 Testing Electrocardiogram Date: 08/03/20 Sinus rhythm with occasional PVCs at 91 bpm. Otherwise normal EKG per cardio. When compared to EKG from July 09VCs are now present, MT interval has decreased per cardio. Chest X-Ray Date: 07/09/20 Findings: + NAD Echocardiogram Date: 01/09/20 EF: 6065% LV Function: normal RWMA: + none Other Findings: + LVH (Moderate/concentric), + diastolic dysfunction (Grade 1) and + pertinent finding (Asymmetric severe hypertrophy of basal anterior septum) Valvular Disease: + no significant valvular disease Other Testing Lung CT scan 12/31/2019 = no acute intrathoracic abnormality. No suspicious pulmonary nodules. Moderate to extensive coronary calcifications. Hepatic steatosis. . 9 mm peripherally calcified splenic artery aneurysm Carotid duplex 01/24/2019 = <50% stenosis in the right internal carotid artery. Occluded left internal carotid artery. Antegrade flow in both vertebral arteries.
[~2020-10-22 10:14] MED LIST changes: -ACET-1311 PO; +ACETAMINOPHEN 500 MG TAB PO SCH; -ASPI81TA25 PO; +BUPIVACAINE 0.5 % 5 MG/1 ML PF 10ML VIAL ONE; +BUPIVACAINE LIPOSOME/PF 266 MG, BUPIVACAINE/EPINEPHRINE 50 ML, SODIUM CHLORIDE 0.9% 30 ... INFIL SCH; -DIPH-437 PO; +FAMOTIDINE 20 MG TAB PO SCH; +GABAPENTIN 300 MG CAP PO SCH; +LR 500ML BOLUS, THEN 15ML/HR IV SCH; +LR 60ML/HR IV SCH; +MIDAZOLAM HCL 1 MG/ML 2ML VIAL ONE; -SIMV20TA2 PO; +Scopolamine 1 MG TDSY TD SCH; +TRANEXAMIC ACID 1,000 MG **IV Intra-op IV SCH; +ceFAZolin 2000MG 2,000 MG/15 ML SYR IV SCH; +fentaNYL citrate 100 MCG/2 ML VIAL ONE
--- NOTE | 2020-10-22 11:10 | History & Physical Bridge Note ---
Date of Service October 22, 2020 History & Physical Bridge Note I have examined the patient, reviewed the History & Physical and in the interval since the performance of the History & Physical I have noted the following changes of clinical significance: no changes noted
[2020-10-22] MEDS ORDERED: fentaNYL citrate 100 MCG/2 ML VIAL IV PRN (12:21)
[2020-10-22] MEDS ORDERED: ePHEDrine sulfate 50 MG/ML AMP IV PRN (12:21)
[2020-10-22] MEDS ORDERED: ONDANSETRON INJ 2 MG/ML 2 ML VIAL IV PRN ×2 (12:21→17:09)
[2020-10-22] MEDS ORDERED: ATROPINE SULFATE 0.1 MG/ML 10ML SYR IV PRN (12:21)
[2020-10-22] MEDS ORDERED: SODIUM CHLORIDE 0.9% PF 50 ML VIAL ONE (13:33)
[2020-10-22] MEDS ORDERED: EPINEPHrine INJ 1 MG/ML AMP ONE (13:33)
[2020-10-22] MEDS ORDERED: BUPIVACAINE LIPOSOME 1.3% 266 MG/20 ML VIAL ONE (13:33)
[2020-10-22] MEDS ORDERED: BUPIVACAINE 0.25% 30 ML VIAL ONE (13:33)
[2020-10-22] MEDS ORDERED: PROPOFOL IV EMULSION 10 MG/ML 20 ML VIAL IV ONE (14:00)
[2020-10-22] MEDS ORDERED: ePHEDrine sulfate 50 MG/ML SYR ONE (14:00)
[2020-10-22] MEDS ORDERED: PHENYLEPHRINE 100MCG/ML 5ML SYR ONE (14:00)
[2020-10-22] MEDS ORDERED: DEXAMETHASONE SOD INJ 4 MG/ML VIAL ONE (15:42)
[2020-10-22] MEDS ORDERED: ONDANSETRON INJ 2 MG/ML 2 ML VIAL ONE (15:42)
--- NOTE | 2020-10-22 16:44 | Operative Report ---
Post Operative Report Pre & Post Diagnosis Operation Date: 10/22/20 12:30 Pre-Op Diagnosis: Left Knee Advanced Degenerative Joint Disease Post-Op Diagnosis: Left Knee Advanced Degenerative Joint Disease I identified the patient and participated in the time-out.: Yes Procedure Operation Date: 10/22/20 12:30 Actual Procedures p Left Total Knee Arthroplasty(Left) - Delon Jordan MD Surgeon Delon Jordan MD Dry Finisher Vicente Garces PA-C Estimated Blood Loss 50 Findings Consistent with Post-Op Diagnosis Operative findings were advanced left knee DJD. She had grade 4 [id number] disease most severe in the lateral compartment. She had eburnation of lateral femoral condyle lateral tibial plateau. Large knee joint effusion. Diffuse osteopenia. Fluids 1700 cc Specimens Left femoral head sent for pathology. Anesthesia Type Spinal MAC Complications none Disposition Accompanied Patient To Recovery: No Disposition: Recovery Room Indications Patient is a 70-year-old female has had a long history of her bilateral knee pain discomfort describes gotten worse over time patient been through extensive conservative treatment which became less successful. She underwent a right knee replacement 3 months ago and is done well from that. She continued be limited by her left knee pain. She elected proceed with left total knee arthroplasty. The patient has an apparent nickel allergy so we used the Cruz & Nephew zirconium journey 2 total knee arthroplasty. Description of Procedure Operative implants consisted of: 1. Cruz & Nephew journey 2 zirconium size 4 left posterior stabilized femoral component. 2. Cruz & Nephew size 3 tibial tray number 311 mm posterior stabilized polyethylene insert. 4. 29 x 9 all polypatella. The patient was taken to the operating, identified, placed on the operating table supine position but a contractors were properly padded. IV antibiotics were applied the anesthesia team. A Alaniz catheter was placed in sterile fashion. An spinal anesthetic and abductor canal block had provided in the holding area. Alaniz catheter was placed in sterile fashion. A left thigh turn was then placed in the left lower extremities and prepped and draped in usual sterile fashion. The left leg was elevated exsanguinated with use of an Esmarch and tourniquet placed at 300 mmHg. An anterior approach to the left knee was then performed through longitudinal incision centered over the patella. Sharp dissection carried through the subcutaneous tissue down the extensor mechanism. A medial parapatellar arthrotomy incision was made. Some subperiosteal dissection was carried out medially. The fat pad was resected from beneath patella tendon. Lateral patellofemoral ligament was released. Patella subluxated laterally and the knee was flexed. The osteophytes taken off distal femur P the ACL PCL were then released from distal femur the tibia subluxated anteriorly. The external tibial alignment jig was then placed in the interface the tibia and adjusted 8 mm medially. Proximal tibial cut was made to remove about 4 to 5 mm of bone fro m the medial side. The tibia sized to a size 3. Attention drawn the femur. The distal femur turned with a sharp drill bit intramedullary canal was suction. A left 5 degree valgus cutting guide was placed. Distal femoral cutting block was pinned in place. The distal femoral cut was made to take an additional 2 mm of bone off distal femur. The femur was then sized to a size 4. Sized exactly to a size 4. The AP cutting block was placed in the anterior cut, anterior cord, posterior cut, posterior chamfer, anterior chamfer cuts were made. The knee was then flexed. The remnants of the medial and lateral menisci were excised. The osteophyte taken off the posterior aspect of the femur. The femoral component was placed. The trochlear cutting device was placed in the distal femur was milled for the intercondylar box. The trochlea was then placed. The tibial tray was then pinned in maximum external rotation and the drill and stem punch were used to create defect in proximal tibia for the tibial tray. Knee was then trialed and the 11 mm insert fit most appropriately. Attention drawn the patella. Nupathe the patella was cleaned of all soft tissue. Patella thickness measured 18 mm and was cut down to 12. It was sized to a size 29 patella. The locals were drilled for the 29 patella. Lateral osteophytes removed. Patella button was placed. Knee was taken through range o f motion and the patella tracked nicely with no thumbs test. Attention drawn to placing permanent components. All trial components were removed. A bone plug was placed in the distal femur limit blood loss. Double batch Palacos G cement was mixed. A Cruz & Nephew size 4 posterior stabilized femoral component was then placed followed by a size 3 tibial tray and 11 mm posterior stabilized insert and a 29 x 9 all polypatella. The knee was brought out into full extension total cement hardened. Final cement check was then performed. Pericapsular tissues were injected with total 100 cc of combination of 20 cc of Exparel, 30 cc normal saline, 50 cc of quarter percent Marcaine with epinephrine. Patient did receive 1 g tranexamic acid. The tourniquet was then let down for turn time of 80 minutes. Hemostasis assured use electrocautery. Extensor mechanism closed with combination 1 PDS suture #1 Vicryl suture in [id number] fashion. The extensor mechanism checked found to be intact the subcutaneous tissue then closed 2 Dexon suture in a buried knot fashion skin was closed skin edil. Leg was then cleaned and dried a sterile dressing was Xeroform, 4 x 4's, sterile cast padding, Dc bandage were applied. Patient then transferred to the recovery room in stable condition. Patient tolerated procedure well and there were no complications. Vicente Garces, my physician certified registered dental assistant, was present for the entire procedure. His assistance was required for proper patient positioning, prepping and draping, surgical exposure, retraction, perform the technical details the operation, placement of the implants, closure of the wound, and placement of sterile bandage. I attest to the content of the Intraoperative Record and any orders documented therein. Any exceptions are noted below.
--- NOTE | 2020-10-22 16:44 | Anesthesiology Progress Note ---
Date of Service October 22, 2020 Anesthesia Post Procedure Vital Signs Vital Signs: Temp Pulse Pulse Resp BP Pulse Ox 10/22/20 16:30 71 16 122/64 95 10/22/20 16:20 85 16 112/68 98 10/22/20 16:10 36.7 C 91 H 15 129/104 H 100 10/22/20 11:01 36.9 C 84 18 131/75 96 Pain Intensity Left Knee: Pain Intensity: 6 Transfer of Care Handoff Completed per policy Notes Mental Status: alert / awake / arousable Patient Amnestic to Procedure: Yes Nausea / Vomiting: adequately controlled Pain: adequately controlled Airway Patency, RR, SpO2: stable & adequate BP & HR: stable & adequate Hydration State: stable & adequate Neuraxial Anesthesia: was administered and sensory block is resolving Anesthetic Complications: no major complications apparent
[2020-10-22] MEDS ORDERED: MAGNESIUM HYDROXIDE SUSP 30 ML UDC PO PRN (17:09)
[2020-10-22] MEDS ORDERED: [UNRECOGNIZED DRUG - OTHER] PO PRN (17:09)
[2020-10-22] MEDS ORDERED: ALUMINUM/MAGNESIUM SUSP 30 ML UDC PO PRN (17:09)
[2020-10-22] MEDS ORDERED: bisacodyL 10 MG SUPP PR PRN (17:09)
[2020-10-22] MEDS ORDERED: METOCLOPRAMIDE HCL INJ 5 MG/ML 2 ML VIAL IV PRN (17:09)
[2020-10-22] MEDS ORDERED: bisacodyL 5 MG TABEC PO PRN (17:09)
[2020-10-22] MEDS ORDERED: NALOXONE HCL 0.4 MG/1 ML VIAL/CARP IV PRN (17:09)
[2020-10-22] MEDS ORDERED: SODIUM CHLORIDE 0.9% 1000ML 1,000 ML IV SCH (17:09)
[2020-10-22] MEDS ORDERED: traMADol HCL 50 MG TABLET PO PRN (17:09)
[2020-10-22] MEDS ORDERED: [UNRECOGNIZED DRUG - OTHER] PO PRN (17:09)
[2020-10-22] MEDS ORDERED: HYDROmorphone INJ 0.5 MG/0.5 ML SYR IV PRN (17:09)
--- NOTE | 2020-10-22 18:02 | XRay Report ---
XR knee LT 1 or 2V routine CLINICAL HISTORY: Surgical Post Op COMPARISON: 02/26/2018 DISCUSSION: There are postsurgical changes of a total left knee arthroplasty and patellar resurfacing . There is gas present within the joint consistent with recent surgery. The femoral tibial components appear well seated. There are overlying skin edil. IMPRESSION: Postsurgical changes of a total left knee arthroplasty. ACT 112: Negative or not required by law. Electronically signed by: Breezy Chiang M.D. 10/22/2020 6:01 PM
[2020-10-22] MEDS: Scopolamine CHECK PATCH PLACEMENT SCH ×2 (18:11→21:33)
[2020-10-22] MEDS: KETOROLAC TROMETHAMINE 15 MG/ML VIAL IV SCH ×2 (18:11→21:33)
[2020-10-22] MEDS: ASCORBIC ACID 500 MG TAB PO SCH (18:30)
[2020-10-22] MEDS ORDERED: SENNA 8.6 MG TAB PO SCH (21:00)
[2020-10-22] MEDS: ceFAZolin 2000MG 2,000 MG/15 ML SYR IV SCH (21:31)
[2020-10-22] MEDS: ASPIRIN 81 MG ECTAB PO SCH (21:32)
[2020-10-22] MEDS: ACETAMINOPHEN 500 MG TAB PO SCH (21:32)
[2020-10-22] MEDS: DOCUSATE SODIUM 100 MG CAP PO SCH (21:32)
[2020-10-22] MEDS ORDERED: TRANEXAMIC ACID / 0.7% NACL 1,000 MG/100 ML BAG IV SCH (22:17)
[2020-10-23] MEDS: ceFAZolin 2000MG 2,000 MG/15 ML SYR IV SCH (05:03)
[2020-10-23] MEDS: KETOROLAC TROMETHAMINE 15 MG/ML VIAL IV SCH ×2 (05:03→11:46)
[2020-10-23] MEDS: ACETAMINOPHEN 500 MG TAB PO SCH (05:03)
[2020-10-23] MEDS: traMADol HCL 50 MG TABLET PO PRN ×2 (05:03→06:39)
[2020-10-23 06:43] LABS: Hemoglobin 11.3 g/dL (12.0-16.0); Mean Corpuscular Hemoglobin 30.5 pg (25-34); Mean Corpuscular Hgb Conc 33.2 g/dL (32-36); Mean Corpuscular Volume 91.6 fL (80-100); Mean Platelet Volume 8.6 fL (7.4-10.4); Platelet Count 207 K/uL (130-400); RDW Standard Deviation 43.8 fL (36.4-46.3); Red Blood Count 3.71 M/uL (4.2-5.4); White Blood Count 8.54 K/uL (4.8-10.8)
[2020-10-23 07:20] LABS: BUN Creatinine Ratio 19.7 (10-20); Calcium 8.6 mg/dl (8.5-10.1); Creatinine Clr Calc Pharmacy 73.4 ml/min; Est GFR (African American) 86.6 ml/min; Est GFR (Non-African American) 74.7 ml/min; Potassium 4.2 mmol/L (3.5-5.1)
[2020-10-23] MEDS ORDERED: dexAMETHasone 10 MG in SYRINGE 0 ML IV SCH (08:00)
--- NOTE | 2020-10-23 08:24 | Progress Notes ---
DATE OF SERVICE: 10/23/2020. SUBJECTIVE: A 70-year-old female postop day #1 from a left knee replacement. She is now about 3 mon ths out from right knee replacement as well. She is doing pretty well. Some moderate pain, but cont rolled with pain medicines. No chest pain or shortness of breath. Not feeling dizzy or lightheaded. OBJECTIVE: VITAL SIGNS: Temperature 36.6. Vital signs stable. GENERAL: Physical examination shows a pleasant elderly female. She is lying in bed and looks pretty comfortable. LUNGS: Clear to auscultation. HEART: Regular rate and rhythm. ABDOMEN: Soft, nontender, nondistended. EXTREMITIES: Grossly neurovascularly intact except as follows. Examination of the left leg reveals the leg to be well aligned. Dressing is clean, dry and intact. She can dorsiflex and plantarflex he r foot appropriately. NEUROLOGIC: She is neurologically intact. LABORATORY DATA: Hemoglobin 11.3. Hematocrit 34.0. Electrolytes are stable. ASSESSMENT: A 70-year-old female postop day #1 from a left knee replacement, doing pretty well. She is 3 months out from a right knee replacement. PLAN: 1. DVT prophylaxis including thigh-high TEDs, SCDs, and aspirin twice a day. 2. PT, OT, weightbear as tolerated. Left total knee protocol. 3. Pain control, doing okay with current pain regimen. 4. Disposition: She is hoping to be discharged to home with some home health. She is hoping to go home today if she does okay in therapy. Job ID: [id number]
[2020-10-23] MEDS ORDERED: [UNRECOGNIZED DRUG - OTHER] PO SCH (09:00)
[2020-10-23] MEDS ORDERED: NON-FORMULARY MEDICATION (Turmeric 400 mg capsule) PO SCH (09:00)
[2020-10-23] MEDS ORDERED: [UNRECOGNIZED DRUG - OTHER] PO SCH (09:00)
[2020-10-23] MEDS ORDERED: [UNRECOGNIZED DRUG - OTHER] PO SCH (09:00)
[2020-10-23] MEDS ORDERED: MULTIVITAMIN TAB PO SCH (09:00)
[2020-10-23] MEDS: Scopolamine CHECK PATCH PLACEMENT SCH (09:03)
[2020-10-23] MEDS: ASCORBIC ACID 500 MG TAB PO SCH (09:03)
[2020-10-23] MEDS: DOCUSATE SODIUM 100 MG CAP PO SCH (09:03)
[2020-10-23] MEDS: ASPIRIN 81 MG ECTAB PO SCH (09:03)
--- NOTE | 2020-10-30 13:27 | Discharge Summary ---
Date of Service October 30, 2020 Admission HPI (Per Admitting) Well documented in patient's chart. Principal Diagnosis Left total knee arthroplasty Discharge Data Procedures Performed Operation Date: 10/22/20 12:30 Actual Procedures p Left Total Knee Arthroplasty(Left) - Delon Jordan MD Ordered Studies 10/22/20 13:12 US - OR guided needle placemen Routine Hospital Course (1) Status post total left knee replacement: Patient presented to [facility] on 10/22/2020 for left total knee arthroplasty. Patient tolerated the procedure well without complication. She was then sent to the PACU for initial postoperative care. She was then transferred to the medical floors for further evaluation. On postop day 1, patient's pain was mostly well controlled. She was ambulating and performing some stretching/strengthening exercises with physical therapy. She was then discharged home. For DVT prophylaxis she will use thigh-high TEDs, SCDs, and aspirin twice a day. She may begin physical therapy and will remain weightbearing as tolerated. She will follow the left total knee protocol. She may continue Tylenol and tramadol for additional pain relief. She will follow-up in 2 weeks postoperatively for evaluation and staple removal at that time. PG Care Time/CCT Total # of Minutes Spent Total Time Spent with Patient: Total time spent is greater than 50% in coordination of care (as documented) at patient's floor/unit and/or counseling patient: Discharge Plan Discharge Items Patient Disposition: Home - Home Health Services Reason For Visit: Left Knee Osteoarthritis Discharge Diagnosis: Left Knee Replacement Activity: Per Instructions section Non-emergency contact: Surgeon Call non-emergency contact if: you have any medication questions Follow-up/Referrals: Tana Sharma MD [Primary Care Provider] - Diet: Carb Consistent or DM2 Addtl Attending Provider Instructions: ACTIVITY RECOMMENDATIONS: Physical Therapy: * You will go to physical therapy three times each week for four to six weeks after your surgery in order to regain your knee range of motion and to retrain your knee to work properly. * It is just as important to make sure you are getting your knee perfectly straight as it is to regain your knee bend. * Taking a pain pill an hour before therapy can help you have a more productive and comfortable therapy session. Home Exercise: * You were shown a series of exercises (heel props, heel slides, etc.) in the hospital. Do these exercises three to four times each day including the exercises you were shown in physical therapy. Walking: * Get up and walk several times each day. For the first four weeks, try not to stand or walk for more than one hour at a time. If you do stand or walk for more than one hour, you will not hurt anything, but your knee and leg will likely swell. * As you feel comfortable, you may change from the walker or crutches to a cane and then to independent walking. MEDICATIONS: New Medicine: * You will likely be taking one or more of these medications: 1. Tramadol- A quick and shorter-acting pain medication. Take one to two tablets every six hours to lessen your pain. 2. Aspirin - Thins your blood to lessen the chance of forming a blood clot. * The most common side effects of pain medicine and iron are nausea and constipation. If nausea or constipation is too much of a problem or if you have any questions about your new medicines or doses, call [facility] at [phone]. We will try to help you manage these issues. "VERY IMPORTANT TO READ AND REVIEW" Pain: * The immediate post-operative period after knee replacement surgery is often quite painful. * You are given a prescription for pain medicine. You should take it, as directed, when you need it, especially before physical therapy and before going to bed. Pain that interferes with sleep is very common and can last several months. * You will likely need pain medicine for the first four to six weeks. It will not stop all of the pain. The pain will lessen and as you feel better, you may change to milder pain medicine such as Tylenol. * The most common side effects of pain medicine are nausea and constipation, so don't take more than you need. SPECIAL CARE INSTRUCTIONS: TEDs/Elastic Stockings: * The white elastic stockings help limit swelling and prevent blood clots from forming in your legs. The more you wear them, the more they work. * Wear them for six weeks after knee replacement surgery and four weeks after partial knee replacement. Prevention of Infection: * Take antibiotics one hour before any dental cleaning, dental work, urological procedure, gastrointestinal procedure or any invasive surgery in order to prevent your new joint from getting infected. * You may get the antibiotics from the doctor performing the procedure or you may call our office at before and we will call in a prescription to the pharmacy of your choice. Things to Watch For: * Drainage from the incision site that occurs more than one week after your surgery. * Severely increased knee/leg pain or swelling. * Increased redness at the incision site. * Fever above 102 degrees Fahrenheit. * Unusual chest pain or shortness of breath. * Unusual pain or burning with urination. Call [facility] at with any of the above problems or if you have any questions about your medicines or recovery. FOLLOW UP VISIT: Make an appointment to see your doctor for approximately two weeks after surgery for a progress check and staple removal by calling the office at . Pending Studies at Discharge: No Stand-Alone Forms: [facility], Smoking Cessation Medications and DC Order Prescriptions: New acetaminophen 500 mg Tablet 1,000 mg PO Q8 30 Days Qty: 180 RF: 0 aspirin 81 mg Tablet,Delayed Release (Dr/Ec) 81 mg PO BID 45 Days Qty: 90 RF: 0 tramadol 50 mg Tablet 50 - 100 mg PO Q6H PRN (Reason: pain) Qty: 40 RF: 0 Continued tramadol 50 mg tablet 50 mg PO Q6 PRN (Reason: pain) Qty: 40 RF: 0 turmeric 400 mg capsule 400 mg PO QAM RF: 0 Dotterra Vitamin 2 cap PO QAM RF: 0 Triease 1 cap PO QAM RF: 0 Copaiba 1 tab PO BID PRN (Reason: Pain) RF: 0 Deep Blue Supplement 1 tab PO BID PRN (Reason: Pain) RF: 0 bisacodyl [Dulcolax (bisacodyl)] 5 mg Tablet,Delayed Release (Dr/Ec) 5 mg PO HS PRN (Reason: Constipation) RF: 0 No Action Bone Nutrient 2 tab PO DAILY RF: 0 tramadol 50 mg tablet 50 mg PO Q6 PRN (Reason: pain) Qty: 40 RF: 0 Discharge Orders: Discharge Order (Routine); Ordered 10/23/20 Ordered By: Delon Huber/Other Patient Handouts: DVT Post Op Prevention Admission Data Admit Date/Time: 10/22/20 16:18 Attending Provider: Delon Jordan Admit Provider: Delon Jordan Primary Care Provider: Tana Sharma Other Providers: [facility],Home Health Other Interventions: Discharge Summary Assessment (RN) Last Done: 10/23/20 09:25
== END 2020-10-23 13:15 | disposition home health service (06) ==
LOC: ASU 10:14 → 3E 10:14
DX: M17.12 Unilateral primary osteoarthritis, left knee; Z86.73 Personal history of transient ischemic attack (TIA), and cerebral infarction without residual deficits; I10 Essential (primary) hypertension; Z88.8 Allergy status to other drugs, medicaments and biological substances; E78.00 Pure hypercholesterolemia, unspecified; E66.9 Obesity, unspecified